=== PATIENT | male | born 1980 | race Two or more races ===

== ENCOUNTER 2025-09-19 16:20 | Inpatient (IN) | payer MEDICAID ==
[~2025-09-19] VITALS: Ht 180.3 cm; Wt 100.0 kg
--- NOTE | 2025-09-19 16:49 | ED.PDOC ---
HPI Comments HPI: This is a 45 year old male presenting to the ED with chief complaint of syncope. Patient reports that he experienced a syncopal episode last night and today along with experiencing associated symptoms of chest burning and lower extremity tingling/pain. Patient relays that he is currently on Prednisone for treatment of chronic back pain. Patient states that his pain all started last night. Patient denies any N/V, SOB, dizziness, headache, fever, or head injury. Patient denies any use of drugs or alcohol. Patient denies any head injury fall or trauma. Past Medical history: HTN, HLD, Chronic Tachycardia, DM, Chronic low back pain Past Surgical history: Spinal Fusion x3 Medications: Lantus, Metformin, Jardiance, Ozempic, Prednisone Social History: Denies smoking, ETOH, and drug use. Allergies: NKDA HPI: Poor Historian. REVIEW OF SYSTEMS: CONSTITUTIONAL: Denies acute: fever, diaphoresis, chills, HEAD: Denies acute: headache, photophobia Eyes: Denies acute: Double vision, vision loss, eye pain, eye discharge. EARS: Denies acute: tinnitus, hearing loss, ear discharge, ear pain, THROAT: Denies acute: sore throat, swelling, difficulty swallowing , pain with swallowing, change in voice. NECK: Denies acute: neck pain, neck swelling, stiff neck. HEART: Denies acute : chest pain, palpitations, LUNGS: Denies acute: SOB, wheezing, cough, hemoptysis ABDOMEN: Denies acute: abdominal pain, Nausea, Vomiting, diarrhea, melena , hematemesis, hematochezia SKIN: Denies acute: rash, redness, lesions, itchiness. EXTREMITIES: Denies acute: calf pain, numbness, tingling, weakness, denies pain in extremity. Denies acute: Low back pain. Neuro: Denies acute: focal neurological deficit, motor or sensory focal neurological deficit, tremors, seizure like activity, confusion, change in mental status, loss of bowel or bladder function, cauda equina like symptoms. : Denies acute: dysuria, hematuria, flank pain, increase in urinary frequency. PSYCH: Denies acute: hallucination, suicidal ideation, homicidal ideation. PHYSICAL EXAM: General: ----moderate---acute distress, awake and alert. Head: normocephalic, atraumatic. No raccoon's eyes, no escalante sign. Neck: supple, trachea is midline, no swelling. Throat: Normal phonation. Eyes:, no erythema, no purulent discharge, no proptosis, no icterus. Heart: regular tachy cardia, no significant murmur appreciated. Lungs: no apparent respiratory distress, Able to speak in full sentences. No wheezing, no rhonchi, no crackles. No stridors Clear to auscultation bilaterally. Abdomen: non tender to palpation, non distended, soft, no guarding, no rebound, + bowel sounds. Neuro: Awake, Alert, oriented to name, self, situation, follows commands GCS=15. Speech is normal. Skin: no petechia, no purpura, no cyanosis, non-pale, not jaundice. Lower extremities: --no - Pitting edema no deformity, no focal swelling, no calf TTP. Makes eye contact. moves all four extremities. Face: no apparent facial droop. ED COURSE: DISCLAIMER: This medical document was created using an electronic medical record system with voice recognition software and computerized dictation system. Although this document has been carefully reviewed, there might still be some phonetic and typographical errors. Occasional wrong-word or "sound-alike" substitutions may have occurred due to the inherent limitations of voice recognition software. These areas are purely typographical due to imperfections of the software programs and do not reflect any compromise in the patient's medical care. Please read the chart carefully and recognize, using context, where these substitutions have occurred. Chief Complaint: Chest Pain Time Seen by MD: 16:46 Reviewed Notes: Medications, Allergies Allergies: Coded Allergies: NO KNOWN ALLERGIES (Unverified , 09/19/25) Home Meds Active Scripts Doxycycline (Monohydrate) (Doxycycline) 100 Mg Tab, 100 MG PO BID for 5 Days, #10 TAB Prov:MATHEW VALDOVINOS RESIDENT 09/21/25 Amoxicillin & Pot Clavulanate (AUGMENTIN TABLET) 875 Mg Tb, 875 MG PO BID for 5 Days, #10 TAB Prov:MATHEW VALDOVINOS RESIDENT 09/21/25 Reported Medications Gabapentin (Gabapentin) 300 Mg Cap, 1 CAP PO BID, #90 CAP 5 Refills 09/20/25 Hydrocodone-Acetaminophen (Hydrocodone Bitartrate/AC 10-325 mg) 1 Tab Tab, 1 TAB PO TID, TAB 09/20/25 Semaglutide (Ozempic) 2 Mg/3 Ml Inj, 2 MG SC, INJ 09/20/25 Insulin Glargine (Lantus) 100 Unit/Ml Inj, 100 UNIT SC, INJ 09/20/25 Empagliflozin (Jardiance) 25 Mg Tab, 25 MG PO DAILY, TAB 09/20/25 Prednisone (Prednisone) 20 Mg Tab, 20 MG PO DAILY, MG 09/20/25 Cholecalciferol (VITAMIN D3) 2,000 Unit Tab, 1 TAB PO DAILY, #30 TAB 5 Refills 09/20/25 Calcium (Calcium) 500 Mg Tab, 500 MG PO, TAB 09/20/25 Leflunomide (Arava) 20 Mg Tab, 1 TAB PO DAILY, #30 TAB 09/20/25 Discontinued Reported Medications Metformin Hydrochloride (Metformin Hcl) 500 Mg Tab, 1 TAB PO BID, #60 TAB 3 Refills 09/20/25 Information Source: Patient Mode of Arrival: Ambulatory Was a procedure done? Was a procedure done?: No CP Differential Dx Differential Diagnosis: A-fib, A-Flutter, Angina, Anxiety / Panic Attack, Atrial Dysrhythmia, Digoxin Toxicity, Electrolyte Disorder, Heart Failure, Hyperthyroidism, Hyperventilation, Hypoxia, MAT, NE, PAC's, Pacemaker Malfunction, PSVT, Pulmonary Embolus, PVC's, Renal Failure, Sinus Tachycardia, Torsades De Pointes, Ventricular Dysrhythmia, V-Fib, V-Tach, WPW Differential Diagnosis: Other (Ddx include but not limitied to gastritis, musculoskeletal pain, radiculopathy, atypical chest pain, dissection, aneurysm, ACS, unstable angina, hiatal hernia, GERD, anxiety, costochondritis, PE, pneumothroax, neoplasm, cardiac ischemia, drug abuse, anemia.) X-Ray, Labs, Meds, VS Vital Signs Date Time Temp Pulse Resp B/P (MAP) Pulse Ox O2 Delivery O2 Flow Rate FiO2 09/19/25 19:31 109 09/19/25 19:30 123/88 09/19/25 18:57 129 24 94 Room Air 09/19/25 18:56 98.1 129 24 120/92 (101) 94 98.1 09/19/25 17:24 135 09/19/25 16:33 137 09/19/25 16:29 97.7 137 18 122/90 100 97.7 Lab Test 09/19/25 19:26 09/19/25 18:31 09/19/25 17:31 09/19/25 16:38 Range/Units Lactic Acid Level 2.9 *H 4.1 *H 0.4-2.0 mmol/L Magnesium Level 2.1 2.1 1.6-2.6 mg/dL Troponin I High Sensitivity 30 37 39 </=54 ng/L Urine Color Light-yellow Yellow Urine Clarity Clear Clear Urine pH 5.5 5.0-9.0 Urine Specific [place] 1.043 H 1.001-1.035 Urine Protein Negative Negative Urine Ketones Negative Negative Urine Blood Negative Negative /uL Urine Nitrite Negative Negative Urine Bilirubin Negative Negative Urine Urobilinogen Normal Negative mg/dL Urine Leukocyte Esterase Negative Negative /uL Urine RBC <1 0 - 3 /hpf Urine Microscopic WBC 1 0-3 /HPF Urine Squamous Epithelial Cells Few <5 /hpf Urine Bacteria None seen None Seen /hpf Urine Glucose 4+ H Normal mg/dL Urine Opiates Screen Neg NEGATIVE Urine Fentanyl Screen Neg NEGATIVE Urine Barbiturates Screen Neg NEGATIVE Urine Phencyclidine Screen Neg NEGATIVE Urine Amphetamines Screen Neg NEGATIVE Urine Benzodiazepines Screen Neg NEGATIVE Urine Cocaine Screen Neg NEGATIVE Urine Cannabinoids Screen Neg NEGATIVE White Blood Count 11.7 H 4.4-10.8 10^3/uL Red Blood Count 6.15 H 4.5-5.90 10^6/uL Hemoglobin 17.5 13.5-17.5 g/dL Hematocrit 52.0 41.0-53.0 % Mean Corpuscular Volume 84.5 80.0-100.0 fL Mean Corpuscular Hemoglobin 28.5 28.0-32.0 pg Mean Corpuscular Hemoglobin Concent 33.7 32.0-36.0 g/dL Red Cell Distribution Width 17.0 H 11.8-14.3 % Platelet Count 290 140-450 10^3/uL Mean Platelet Volume 7.3 6.9-10.8 fL Neutrophils (%) (Auto) 75.6 37.0-80.0 % Lymphocytes (%) (Auto) 15.9 10.0-50.0 % Monocytes (%) (Auto) 6.7 0.0-12.0 % Eosinophils (%) (Auto) 1.5 0.0-7.0 % Basophils (%) (Auto) 0.3 0.0-2.0 % Neutrophils # (Auto) 8.9 H 1.6-8.6 10 ^3/uL Lymphocytes # (Auto) 1.9 0.4-5.4 10 ^3/uL Monocytes # (Auto) 0.8 0-1.3 10 ^3/uL Eosinophils # (Auto) 0.2 0-0.8 10 ^3/uL Basophils # (Auto) 0 0-0.2 10 ^3/uL Nucleated Red Blood Cells 0.1 % Sodium Level 141 136-145 mmol/L Potassium Level 4.0 3.5-5.1 mmol/L Chloride Level 105 98-107 mmol/L Carbon Dioxide Level 20 20-31 mmol/L Anion Gap 16 H 5-15 Blood Urea Nitrogen 9 9-23 mg/dL Creatinine 0.91 0.700-1.30 mg/dL Glomerular Filtration Rate Calc 105 >90 mL/min BUN/Creatinine Ratio 9.9 L 10.0-20.0 Serum Glucose 243 H 74-106 mg/dL Calcium Level 9.8 8.7-10.4 mg/dL Total Bilirubin 0.5 0.2-1.0 mg/dL Aspartate Amino Transferase (AST) 25 13-40 U/L Alanine Aminotransferase (ALT) 51 H 7-40 U/L Alkaline Phosphatase 82 46-116 U/L B-Type Natriuretic Peptide 8.67 0-100 pg/mL Total Protein 7.4 5.7-8.2 g/dL Albumin 4.6 3.2-4.8 g/dL Thyroid Stimulating Hormone (TSH) 0.64 0.55-4.78 uIU/mL Microbiology Date/Time Source Procedure Growth Status 09/19/25 17:35 Blood Blood Culture - Final NO GROWTH AFTER 5 DAYS OF INCUBATION. Complete 09/19/25 17:31 Blood Blood Culture - Final NO GROWTH AFTER 5 DAYS OF INCUBATION. Complete [facility] [id number] [facility] [address] Ph: [phone] DIAGNOSTIC IMAGING Diagnostic Imaging Report : [id number] Signed PATIENT: JUAN JOSE PARMAR ACCT: [id number] UNIT: [id number] : 1980 LOC: ER ROOM / BED: / AGE / SEX: 45 / M ADM STATUS: REG ER SERVICE 163 ORDERING PHYSICIAN: ORQUIDEA RINCON PROCEDURE(s): CXR2 - CHEST TWO VIEWS ROUTINE REASON: CP ORDER NUMBER(s): [id number], ACCESSION NUMBER(s): [id number] XY CHEST TWO VIEWS ROUTINE CLINICAL HISTORY: CP COMPARISON: None TECHNIQUE: Frontal and lateral view of the chest was obtained FINDINGS: Lines and Tubes: None Lungs: Nodular appearance noted over the right 8th rib. This may represent a 4 2 [place] confluence of bony densities. There are no prior studies for comparison. Pleura: No effusion. No pneumothorax. Cardiomediastinal contours: Unremarkable Bones: No acute osseous abnormality. IMPRESSION: 1. No acute cardiopulmonary disease. 2. Nodular density over the right 8th rib if of clinical concern recommend CT of the chest for further evaluation. ATED BY: SIDDHARTH SHORE Jr., DO DICTATED DATE/TIME: 09/19/251719 SIGNED BY: SIDDHARTH SHORE Jr., SIGNED DATE/TIME: 09/19/251719 CC: Time of 1ST Reevaluation: 17:46 Reevaluation 1ST: Unchanged Patient Education/Counseling: Diagnosis, Treatment Family Education/Counseling: No Family Present Comments MDM: patient presented with the above HPI.-cardiac----workup was initiated. patient was found with the above mentioned diagnosis. the following medications were ordered: please refer to order lists of meds and tests obtained by myself Dr. Marsh. Patient ED course and VS have been stabilized. Patient has been reassessed in the ED and remained in a stable condition. Pertinent incidental findings were discussed with the patient and/or family. Patient/family voices understanding and is agreeable with plan. Patient has been observed in the ED adequate length of time to insure improvement/stability. Escalation of care considered: Consideration of escalation to observation or admission Patient was ADMITTED to the medicine team for further evaluation and treatment of their presentation. All the reports of any imaging studies that were ordered by myself were reviewed by myself. Departure 1 Departure Time of Disposition: 17:58 Impression: Primary Impression: Syncope Additional Impression: Tachycardia Disposition: ADMITTED INPATIENT Admit to: Tele Condition: Guarded e-Prescriptions Doxycycline (Monohydrate) (Doxycycline) 100 Mg Tab 100 MG PO BID for 5 Days, #10 TAB Prov: BONIFACIOMATHEW RESIDENT 09/21/25 Amoxicillin & Pot Clavulanate (AUGMENTIN TABLET) 875 Mg Tb 875 MG PO BID for 5 Days, #10 TAB Prov: MATHEW VALDOVINOS RESIDENT 09/21/25 Discharged With: Self Critical Care Note Critical Care Time?: No Heart Score Heart Score: Heart Score Response (Comments) Value History Highly Suspicious 2 EKG Repolarization Disturb 1 Age 45-64 1 Risk Factors 1 or 2 risk factors 1 Troponin Normal limit 0 Total 5 I personally scribed for BISI MARSH DO ([email or web address]) on 09/19/25 at 16:49. Electronically submitted by Montrell Ca ([email or web address]). BISI MARSH DO Sep 19, 2025 16:49
[2025-09-19 16:53] LABS: Hemoglobin 17.5 g/dL (13.5-17.5); Nucleated Red Blood Cells % 0.1 %
[2025-09-19 16:55] LABS: Hematocrit 52.0 % (41.0-53.0); Mean Corpuscular Hemoglobin 28.5 pg (28.0-32.0); Mean Corpuscular Volume 84.5 fL (80.0-100.0)
[2025-09-19 17:11] LABS: Albumin 4.6 g/dL (3.2-4.8); Alkaline Phosphatase 82 U/L (46-116); Anion Gap 16 (5-15); BUN/Creatinine Ratio 9.9 (10.0-20.0); Blood Urea Nitrogen 9 mg/dL (9-23); Calcium 9.8 mg/dL (8.7-10.4); Carbon Dioxide 20 mmol/L (20-31); Chloride 105 mmol/L (98-107); Magnesium 2.1 mg/dL (1.6-2.6); Potassium 4.0 mmol/L (3.5-5.1); Sodium 141 mmol/L (136-145); Total Protein 7.4 g/dL (5.7-8.2)
[2025-09-19 17:12] LABS: Alanine Aminotransferase 51 U/L (7-40); Bilirubin, Total 0.5 mg/dL (0.2-1.0); Glucose 243 mg/dL (74-106)
[2025-09-19 17:14] LABS: Lactic Acid w/Reflex 4.1 mmol/L (0.4-2.0)
--- NOTE | 2025-09-19 17:22 | DVH ---
XY CHEST TWO VIEWS ROUTINE CLINICAL HISTORY: CP COMPARISON: None TECHNIQUE: Frontal and lateral view of the chest was obtained FINDINGS: Lines and Tubes: None Lungs: Nodular appearance noted over the right 8th rib. This may represent a 4 2 [place] confluence of bony densities. There are no prior studies for comparison. Pleura: No effusion. No pneumothorax. Cardiomediastinal contours: Unremarkable Bones: No acute osseous abnormality. IMPRESSION: 1. No acute cardiopulmonary disease. 2. Nodular density over the right 8th rib if of clinical concern recommend CT of the chest for further evaluation.
[2025-09-19] MEDS: SODIUM CHLORIDE 0.9% 1,000 ML IV ONE ×3 (17:56→21:15)
[2025-09-19 18:48] LABS: Urine Protein, UAD Negative (Negative)
[2025-09-19 18:57] LABS: Amphetamine Screen, Urine Neg (NEGATIVE); Barbiturate Scree,Urine Neg (NEGATIVE); Benzodiazephine Screen, Urine Neg (NEGATIVE); Cannabinoid Screen, Urine Neg (NEGATIVE); Cocaine Screen, Urine Neg (NEGATIVE); Opiate Scree,Urine Neg (NEGATIVE); Phencyclidine Screen, Urine Neg (NEGATIVE)
[2025-09-19] MEDS: HYDROcodone-ACET 5/325MG TAB PO ONE (19:30)
[2025-09-19] MEDS: NITROGLYCERIN 0.4 MG SL TAB SL ONE (19:30)
[2025-09-19] MEDS ORDERED: ACETAMINOPHEN 325 MG TAB PO PRN (21:15)
[2025-09-19] MEDS: IPRATROPIUM BROM 0.5 MG/2.5ML INH SOL NEB ONE (21:15)
[2025-09-19] MEDS ORDERED: DEXTROSE (50%) 50ML SYRG IV PRN (21:15)
[2025-09-19] MEDS ORDERED: ONDANSETRON HCL 4 MG/2 ML VIAL IV PRN (21:15)
[2025-09-19] MEDS: ENOXAPARIN SOD 40 MG/0.4 ML SYRINGE SC SCH (21:15)
[2025-09-19] MEDS: ALBUTEROL SULF 2.5 MG/0.5ML(0.5%) NEB SOLN NEB ONE (21:15)
[2025-09-19] MEDS: HYDROmorphone HCL 2 MG/ML VL/or syr IV ONE (21:15)
[2025-09-19] MEDS: INSULIN LANTUS (GLARGINE) 1 /0.01ml (100units/ml) SC SCH (22:00)
--- NOTE | 2025-09-19 22:06 | DVH ---
CLINICAL HISTORY: syncope TECHNIQUE: Helical scanning was performed of the head from the skull base to the vertex. Multiplanar reconstructions were performed. This exam was performed according to our departmental dose optimization program. Up-to-date CT equipment and radiation dose reduction techniques are utilized as appropriate. CTDI 58 DLP 1143 COMPARISON: None FINDINGS: There is no evidence for acute intracranial hemorrhage, acute ischemic changes, mass, mass effect, or extra-axial fluid collection. There is no hydrocephalus or midline shift. There is no effacement of the cerebral sulci and basal subarachnoid cisterns. The chen-white matter differentiation is well maintained. The imaged paranasal sinuses demonstrate moderate right maxillary sinus mucosal thickening with secretions. IMPRESSION: No acute intracranial abnormality seen. Moderate right maxillary sinus mucosal thickening with secretions.
[2025-09-19] MEDS: ALBUTEROL SULF 2.5 MG/0.5ML(0.5%) NEB SOLN ONE (22:08)
[2025-09-19] MEDS: IPRATROPIUM BROM 0.5 MG/2.5ML INH SOL ONE (22:08)
--- NOTE | 2025-09-19 22:23 | DVH ---
ULTRASOUND CAROTID DUPLEX BILATERAL REASON FOR EXAM: syncope COMPARISON: None TECHNIQUE: Using real-time freeze-frame technique with a high-frequency small parts transducer, multiple longitudinal and transverse sections were obtained. Simultaneous color flow Doppler imaging was performed. FINDINGS: No significant atherosclerotic plaque is identified. Waveforms are normal. Flow is laminar throughout. Peak systolic velocities as well as ICA/CCA ratios are normal. Flow through the vertebral and external carotid arteries is antegrade bilaterally. PEAK SYSTOLIC VELOCITIES (cm/sec): RIGHT: CCA 76 Proximal ICA 59 Mid ICA 32 Distal ICA 62 ECA 54 ICA/CCA ratio 0.8 LEFT: CCA 66 Proximal ICA 40 Mid ICA 67 Distal ICA 72 ECA 78 ICA/CCA ratio 1.1 IMPRESSION: No significant stenosis. Any narrowing is less than 50%. Measurement of carotid stenosis is based on velocity parameters that correlate the residual internal carotid diameter with that of the more distal vessel in accordance with the [place] Symptomatic Carotid Endarterectomy Trial (NASCET).
[2025-09-19] MEDS: predniSONE 20 MG TAB PO ONE (22:31)
[2025-09-19 23:00] VITALS: BP 123/88; PULSE 100; RESP 18; TEMP 98.1; O2SAT 95
--- NOTE | 2025-09-19 23:55 | DVHHPRES ---
History of Present Illness Resident Creating Document: JUAN CAST RESIDENT History of Present Illness 45-year-old male with a past medical history of chronic tachycardia, type 2 diabetes mellitus (On insulin), lower back pain and rheumatoid arthritis( taking daily prednisolone) with surgical history of spinal fusion x2- one l aminectomy, has come in with the chief complaints of shortness of breath and cough for 2 weeks, 2-3 syncopal episodes and increased lower back pain which radiates to his legs. Patient reports that he has been coughing for the past 2 weeks, producing dark yellow phlegm, which has now become white, associated with increased shortness of breath, rendering him unable to travel from his bed to his bathroom. He also reports that he has had 2-3 episodes of syncope after returning from the bathroom to bed on lying down, describes it as a 'sudden flushing' of his whole body, making him sweaty and he blacks out for 5-10 seconds ( reports he missed out on the conversation twice due to this). Patient also reports of chronic back pain which has been worsening since last night, throbbing, 7/10, radiating down to b/l legs more than usual, and associated with a sharp pain in his chest which lasted several minutes. Patient denies any recent sick contacts, palpitations, chest tightness, On admission, patient's heart rate was 137, respiratory rate 24, WBC count 11.7, lactic acid 4.1, blood glucose 243. UA and UDS are negative. We are admitting the patient for further workup and management PMH: As stated above PSH: As stated above Family history: Reviewed, noncontributory to the management of this case Social history: Patient smokes E cigarettes for the past 5 years, used to smoke 1 pack of cigarettes per day for 27 years, denies any alcohol or drug abuse PCP: Dr. Lazaro Code status: Full code Review of Systems Constitutional: No: Fever, Chills, Sweats, Weakness, Malaise, Other Eyes: No: Pain, Vision change, Conjunctivae inflammation, Eyelid inflammation, Other, Redness ENT: No: Ear pain, Ear discharge, Nose pain, Nose discharge, Nose congestion, Mouth pain, Mouth swelling, Throat pain, Throat swelling, Other Respiratory: Cough, Shortness of breath, Sputum; No: Dry, SOB with excertion, Wheezing, Hemoptysis, Pleuritic Pain, Wheezing, Other Cardiovascular: Other (Syncope); No: Chest Pain, Palpitations, Orthopnea, Paroxysmal Noc. Dyspnea, Edema, Lt Headedness Gastrointestinal: No: Nausea, Vomiting, Abdominal Pain, Diarrhea, Constipation, Melena, Hematochezia, Other Genitourinary: No Dysuria, No Frequency, No Incontinence, No Hematuria, No Retention, No Other Musculoskeletal: back pain; No: other, neck pain, shoulder pain, arm pain, hand pain, leg pain, foot pain Skin: No: Rash, Lesions, Jaundice, Bruising, Other Neurological: No: Weakness, Numbness, Incoordination, Change in speech, Confusion, Seizures, Other Allergies: Coded Allergies: NO KNOWN ALLERGIES (Unverified , 09/19/25) Medications Current Medications Medications Dose Ordered Sig/Jr Route Start Time Stop Time Status Last Admin Dose Admin Acetaminophen/ Hydrocodone Bitart 1 tab Q4HP PRN PO 09/19/25 21:15 Ondansetron HCl 4 mg Q4HP PRN IV 09/19/25 21:15 Acetaminophen 650 mg Q6HP PRN PO 09/19/25 21:15 Enoxaparin Sodium 40 mg DAILY SC 09/19/25 21:15 09/19/25 21:15 40 MG Insulin Glargine 20 units HS SC 09/19/25 22:00 09/19/25 22:00 20 UNITS Prednisone 40 mg DAILY PO 09/20/25 10:00 Albuterol 2.5 mg Q6HPRN PRN NEB 09/20/25 08:00 Ipratropium [place] 0.5 mg Q6HR NEB 09/20/25 08:00 Hydromorphone HCl 0.25 mg Q3HPRN PRN IV 09/19/25 21:15 Ceftriaxone Sodium 50 ml @ 100 mls/hr Q24H IV 09/20/25 21:00 Diagnostic Test (Pha) 1 strip Q6HR 09/20/25 00:00 Insulin Human Regular Q6HR SC 09/20/25 00:00 Dextrose 50 ml UD PRN IV 09/19/25 21:15 Exam Vital Signs Vital Signs Date Time Temp Pulse Resp B/P (MAP) Pulse Ox O2 Delivery O2 Flow Rate FiO2 09/19/25 23:00 98.1 100 18 123/88 95 0.0 98.1 11/12/25 22:09 Room Air* 21 Exam Pt is lying on bed General Appearance: Alert, Oriented X3, Cooperative, in acute distress, flushed face HEENT: Atraumatic, Mucous membranes moist/pink, presence of red macular rash on the chest area (chronic, told by PCP it was due to RA) Respiratory: Clear to auscultation, Normal air movement, No added sounds Cardiovascular: Regular rate, Normal S1, Normal S2, No murmurs Abdominal: Active bowel sounds, Soft, no distention, no tenderness Extremities: No edema, Normal pulses, No tenderness/swelling Skin: No Significant rash, except past surgical scars Neuro: Normal speech, sensorimotor deficits none Psych/Mental Status: Mental status NL, Mood NL Labs/Xrays Labs Test 09/19/25 22:24 09/19/25 22:07 09/19/25 19:26 09/19/25 18:31 Range/Units POC Glucose 180 H 70-106 mg/dl D-Dimer, Quantitative 0.57 H 0.0-0.49 mg/L FEU Lactic Acid Level 2.9 *H 0.4-2.0 mmol/L Magnesium Level 2.1 1.6-2.6 mg/dL Troponin I High Sensitivity 30 </=54 ng/L Urine Color Light-yellow Yellow Urine Clarity Clear Clear Urine pH 5.5 5.0-9.0 Urine Specific [place] 1.043 H 1.001-1.035 Urine Protein Negative Negative Urine Ketones Negative Negative Urine Blood Negative Negative /uL Urine Nitrite Negative Negative Urine Bilirubin Negative Negative Urine Urobilinogen Normal Negative mg/dL Urine Leukocyte Esterase Negative Negative /uL Urine RBC <1 0 - 3 /hpf Urine Microscopic WBC 1 0-3 /HPF Urine Squamous Epithelial Cells Few <5 /hpf Urine Bacteria None seen None Seen /hpf Urine Glucose 4+ H Normal mg/dL Urine Opiates Screen Neg NEGATIVE Urine Fentanyl Screen Neg NEGATIVE Urine Barbiturates Screen Neg NEGATIVE Urine Phencyclidine Screen Neg NEGATIVE Urine Amphetamines Screen Neg NEGATIVE Urine Benzodiazepines Screen Neg NEGATIVE Urine Cocaine Screen Neg NEGATIVE Urine Cannabinoids Screen Neg NEGATIVE Test 09/19/25 16:38 Range/Units White Blood Count 11.7 H 4.4-10.8 10^3/uL Red Blood Count 6.15 H 4.5-5.90 10^6/uL Hemoglobin 17.5 13.5-17.5 g/dL Hematocrit 52.0 41.0-53.0 % Mean Corpuscular Volume 84.5 80.0-100.0 fL Mean Corpuscular Hemoglobin 28.5 28.0-32.0 pg Mean Corpuscular Hemoglobin Concent 33.7 32.0-36.0 g/dL Red Cell Distribution Width 17.0 H 11.8-14.3 % Platelet Count 290 140-450 10^3/uL Mean Platelet Volume 7.3 6.9-10.8 fL Neutrophils (%) (Auto) 75.6 37.0-80.0 % Lymphocytes (%) (Auto) 15.9 10.0-50.0 % Monocytes (%) (Auto) 6.7 0.0-12.0 % Eosinophils (%) (Auto) 1.5 0.0-7.0 % Basophils (%) (Auto) 0.3 0.0-2.0 % Neutrophils # (Auto) 8.9 H 1.6-8.6 10 ^3/uL Lymphocytes # (Auto) 1.9 0.4-5.4 10 ^3/uL Monocytes # (Auto) 0.8 0-1.3 10 ^3/uL Eosinophils # (Auto) 0.2 0-0.8 10 ^3/uL Basophils # (Auto) 0 0-0.2 10 ^3/uL Nucleated Red Blood Cells 0.1 % Sodium Level 141 136-145 mmol/L Potassium Level 4.0 3.5-5.1 mmol/L Chloride Level 105 98-107 mmol/L Carbon Dioxide Level 20 20-31 mmol/L Anion Gap 16 H 5-15 Blood Urea Nitrogen 9 9-23 mg/dL Creatinine 0.91 0.700-1.30 mg/dL Glomerular Filtration Rate Calc 105 >90 mL/min BUN/Creatinine Ratio 9.9 L 10.0-20.0 Serum Glucose 243 H 74-106 mg/dL Calcium Level 9.8 8.7-10.4 mg/dL Total Bilirubin 0.5 0.2-1.0 mg/dL Aspartate Amino Transferase (AST) 25 13-40 U/L Alanine Aminotransferase (ALT) 51 H 7-40 U/L Alkaline Phosphatase 82 46-116 U/L B-Type Natriuretic Peptide 8.67 0-100 pg/mL Total Protein 7.4 5.7-8.2 g/dL Albumin 4.6 3.2-4.8 g/dL Thyroid Stimulating Hormone (TSH) 0.64 0.55-4.78 uIU/mL SEPSIS Sepsis Screen Date sepsis recognized/suspect: Sep 19, 2025 Time Sepsis recognized/suspect: 1629 Recent Procedure: No On Antibiotic Therapy: No Respiratory Rate >20: No Heart Rate >90: No Temp<36 C (96.8 F) or >38.3 C: No SBP <90 or MAP <65 mmHG: No New Acute Mental Status Change: No Is the patient on CPAP, BIPAP,: No Physician Orders Chest Two Views Routine (09/19/25 16:36) Electrocardigram (09/19/25 16:36) Electrocardigram (09/19/25 17:36) Electrocardigram (09/19/25 19:36) Senior Search Marketing Analyst (09/19/25 ) Blood Culture (09/19/25 16:45) Admit (09/19/25 21:02) Code Status (09/19/25 21:02) Hydrocodone-Acet 5/325mg Tab ([place] 5/32 (09/19/25 21:15) Ondansetron Hcl (Zofran) (09/19/25 21:15) Complete Blood Count (09/20/25 04:00) Comprehensive Metabolic Panel (09/20/25 04:00) Cardiac Diet-2gna,Lofat,Lochol (09/20/25 Breakfast) Condition: Unstable (09/19/25 21:02) Acetaminophen Tablet (Tylenol Tablet) (09/19/25 21:15) Enoxaparin Sodium (Lovenox) (09/19/25 21:15) Insulin Lantus (Glargine) (Lantus) (09/19/25 22:00) Echo 2d Mode Cardiac Dop (09/19/25 21:02) Carotid Duplx W Color Dop (09/19/25 21:02) Lactic Acid W/ Reflex Order (09/20/25 01:00) Prednisone Tablet (09/20/25 10:00) Albuterol Medneb (Ventolin Medneb) (09/20/25 08:00) Ipratropium Medneb (Atrovent Medneb) (09/20/25 08:00) Respiratory Culture W/ Gs (09/19/25 21:02) Hydromorphone Injection (Dilaudid Inject (09/19/25 21:15) Mrsa Screen (09/19/25 21:02) Ceftriaxone 1gm/50ml (Rocephin) (09/20/25 21:00) Head Without Contrast (09/19/25 21:02) Covid19 Antigen (09/19/25 ) Rapid Influenza A&B (09/19/25 21:02) Glucose Blood (Accu-Chek Comfort Curve T (09/20/25 00:00) Insulin R (Human) (Insulin R) (09/20/25 00:00) Dextrose 50% Syringe (09/19/25 21:15) Vital Signs Date Time Temp Pulse Resp B/P (MAP) Pulse Ox O2 Delivery O2 Flow Rate FiO2 09/19/25 23:00 98.1 100 18 123/88 95 0.0 98.1 09/19/25 22:46 100 18 123/88 (100) 95 09/19/25 22:09 16 95 Room Air* 0 21 09/19/25 21:15 74 18 128/74 09/19/25 19:31 109 09/19/25 19:30 123/88 09/19/25 18:57 129 24 94 Room Air 09/19/25 18:56 98.1 129 24 120/92 (101) 94 98.1 09/19/25 17:24 135 09/19/25 16:33 137 09/19/25 16:29 97.7 137 18 122/90 100 97.7 Laboratory Tests Test 09/19/25 16:38 09/19/25 19:26 Lactic Acid Level 4.1 mmol/L (0.4-2.0) *H 2.9 mmol/L (0.4-2.0) *H White Blood Count 11.7 10^3/uL (4.4-10.8) H Medications Medications Dose Ordered Sig/Jr Route Start Time Stop Time Status Last Admin Dose Admin Acetaminophen/ Hydrocodone Bitart 1 tab ONCE ONCE PO 09/19/25 19:30 09/19/25 20:03 DC 09/19/25 19:30 1 TAB Albuterol 2.5 mg STK-MED ONCE .ROUTE 09/19/25 21:43 09/19/25 21:43 DC 09/19/25 22:08 2.5 MG Ceftriaxone Sodium 50 ml @ 100 mls/hr ONCE ONCE IV 09/19/25 19:30 09/19/25 20:03 DC 09/19/25 19:30 100 MLS/HR Enoxaparin Sodium 40 mg DAILY SC 09/19/25 21:15 09/19/25 21:15 40 MG Hydromorphone HCl 0.25 mg ONCE ONCE IV 09/19/25 21:15 09/19/25 22:13 DC 09/19/25 21:15 0.25 MG Insulin Glargine 20 units HS SC 09/19/25 22:00 09/19/25 22:00 20 UNITS Ipratropium [place] 0.5 mg STK-MED ONCE .ROUTE 09/19/25 21:43 09/19/25 21:43 DC 09/19/25 22:08 0.5 MG Prednisone 40 mg ONCE ONCE PO 09/19/25 21:15 09/19/25 22:13 DC 09/19/25 22:31 40 MG Sodium Chloride 1,000 ml @ 1,000 mls/hr Q1H ONCE IV 09/19/25 16:45 09/19/25 17:44 DC 09/19/25 17:56 1,000 MLS/HR Sodium Chloride 1,000 ml @ 1,000 mls/hr Q1H ONCE IV 09/19/25 17:30 09/19/25 18:29 DC 09/19/25 17:56 1,000 MLS/HR Sodium Chloride 1,000 ml @ 1,000 mls/hr Q1H ONCE IV 09/19/25 21:15 09/19/25 22:14 DC 09/19/25 21:15 1,000 MLS/HR Assessment/Plan Assessment/Plan #Sepsis due to possible Gram-positive, Gram-negative pneumonia #Lactic acidosis -lactic acid 4.1> 2.9>1.7 -blood culture -Respiratory culture -IV Rocephin 1 g daily -COVID, flu- neg -D-dimer 0.57 -Doppler of bilateral extremities: No DVT is seen. No other abnormalities identified -chest x-ray shows nodular density of the 8th rib -Med nebulization albuterol 2.5 mg q.6 PRN -Med nebulization ipratropium bromide q.6 PRN -MRSA neg -IV NS 0.9% #Syncope -troponins -39, 37, 30 -UA normal -UDS negative -BNP 8.67 -Echo -TSH 0.64 -Carotid Doppler: No significant stenosis. Any narrowing is less than 50% -Magnesium 2.1 -IV ondansetron for Gram q.4 PRN -Ct head shows: no acute intracranial abnormality seen; Moderate right maxillary sinus mucosal thickening with secretions -levabuterol med neb once #Uncontrolled diabetes mellitus type 2 -A1c 8.2 -serum glucose 243 -insulin Lantus 20 units daily HS -Moderate sliding scale insulin #Chronic lower back pain -Pain control with: -acetaminophen 650 mg p.o. q.6 PRN for mild pain -[place] 5/325 mg q.4 PRN for moderate pain and -Dilaudid 0.25 mg IV once and 0.25 mg q.4 PRN for severe pain #Rheumatoid arthritis -Continue home medication prednisolone 40 mg daily #Obesity, BMI 30.7kg/m2 - patient was counseled regarding need of exercise, weight loss, dietary modification and healthy lifestyle for the 8 minutes DVT prophylaxis: Lovenox 40 mg SC daily GI prophylaxis: Diet: cardiac and diabetic Goals of care discussed with the patient for more than 27 minutes: Full code status Case discussed with Dr. Lazaro, patient and nurse. Plan discussed with: Patient My Orders Orders - JUAN CAST RESIDENT Procedure Category Date Status Time Admit ADMIT 09/19/25 Transmitted 21:02 Code Status CODE 09/19/25 Transmitted 21:02 Hydrocodone-Acet PHA 09/19/25 In Process 5/325mg Tab ([place] 21:15 Ondansetron Hcl PHA 09/19/25 In Process (Zofran) 21:15 Complete Blood Count LAB 09/20/25 Verified 04:00 Comprehensive LAB 09/20/25 Verified Metabolic Panel 04:00 Cardiac DIET 09/20/25 Transmitted Diet-2gna,Lofat,Lochol Breakfast Condition: Unstable GEOVANI 09/19/25 In Process 21:02 Acetaminophen Tablet PHA 09/19/25 In Process (Tylenol Tablet) 21:15 Enoxaparin Sodium PHA 09/19/25 In Process (Lovenox) 21:15 Insulin Lantus PHA 09/19/25 In Process (Glargine) (Lantus) 22:00 Echo 2d Mode Cardiac US 09/19/25 Logged DOP 21:02 Carotid Duplx W Color US 09/19/25 Resulted DOP 21:02 Lactic Acid W/ Reflex LAB 09/20/25 Verified Order 01:00 Prednisone Tablet PHA 09/20/25 In Process 10:00 Albuterol Medneb PHA 09/20/25 In Process (Ventolin Medneb) 08:00 Ipratropium Medneb PHA 09/20/25 In Process (Atrovent Medneb) 08:00 Respiratory Culture LENIN 09/19/25 Logged W/ Gs 21:02 Hydromorphone PHA 09/19/25 In Process Injection (Dilaudid 21:15 Mrsa Screen LENIN 09/19/25 Logged 21:02 Ceftriaxone 1gm/50ml PHA 09/20/25 In Process (Rocephin) 21:[address] 09/19/25 Resulted 21:02 Covid19 Antigen LAB 09/19/25 Logged Rapid Influenza A&B LAB 09/19/25 Logged 21:02 Glucose Blood PHA 09/20/25 In Process (Accu-Chek Comfort 00:00 Insulin R (Human) PHA 09/20/25 In Process (Insulin R) 00:00 Dextrose 50% Syringe PHA 09/19/25 In Process 21:15 Date of Service: Sep 20, 2025 Billing Provider: ARYAN LAZARO MD Common Visit Codes: [id number] INP/OBS CARE (HIGH) Secondary Visit Codes: [id number] CARE PLAN 30 MINUTES JUAN CAST RESIDENT Sep 19, 2025 23:55
[2025-09-20] VITALS (9 sets, daily range): BP systolic 109–138; BP diastolic 71–88; PULSE 96–108; RESP 18–20; TEMP 97.7–98.4; O2SAT 95–99
[2025-09-20] MEDS: InsuLIN REG 1unit/0.01ml Soln (100units/ml) SC SCH
[2025-09-20] MEDS: ACCU-CHEK COMFORT CURVE STRIP VI SCH
[2025-09-20] MEDS: HYDROcodone-ACET 5/325MG TAB PO PRN (00:53)
--- NOTE | 2025-09-20 02:29 | DVH ---
MEDICAL RECORDS NUMBER: [id number] PROCEDURE: Bilateral lower extremity venous duplex Date: 09/20/2025 12:15 AM HISTORY: High D-dimer COMPARISON: None TECHNIQUE: Real-time ultrasound scan of the examination listed above with color Doppler flow, spectral waveform analysis and compression. FINDINGS: Multiple grayscale and Doppler images of the bilateral lower extremities demonstrate normal phasic flow, augmentation and compression. IMPRESSION: 1. No DVT is seen. No other abnormalities identified.
[2025-09-20] MEDS: HYDROmorphone HCL 2 MG/ML VL/or syr IV PRN (03:00)
[2025-09-20] MEDS ORDERED: METF-370 PO (04:22)
[2025-09-20] MEDS ORDERED: PRED20TA2 PO (04:22)
[2025-09-20] MEDS ORDERED: INSLANTI SC (04:22)
[2025-09-20] MEDS ORDERED: CALC-312 PO (04:22)
[2025-09-20] MEDS ORDERED: LEFL20TA PO (04:22)
[2025-09-20] MEDS ORDERED: EMPA1TAB3 PO (04:22)
[2025-09-20] MEDS ORDERED: CHOL20007 PO (04:22)
[2025-09-20] MEDS ORDERED: HYDR-4798 PO (04:23)
[2025-09-20] MEDS ORDERED: GABA-1250 PO (04:23)
[2025-09-20] MEDS ORDERED: SEMA2INJ3 SC (04:23)
[2025-09-20 04:27] LABS: Hematocrit 46.6 % (41.0-53.0); Hemoglobin 15.5 g/dL (13.5-17.5); Mean Corpuscular Hemoglobin 28.0 pg (28.0-32.0); Mean Corpuscular Volume 84.0 fL (80.0-100.0); Nucleated Red Blood Cells % 0.1 %
[2025-09-20] MEDS ORDERED: LEVALBUTEROL HCL 1.25 MG/3 ML NEB NEB PRN (04:45)
[2025-09-20 04:48] LABS: Alkaline Phosphatase 73 U/L (46-116); Anion Gap 13 (5-15); BUN/Creatinine Ratio 14.9 (10.0-20.0); Blood Urea Nitrogen 10 mg/dL (9-23); Carbon Dioxide 23 mmol/L (20-31); Chloride 105 mmol/L (98-107); Potassium 4.3 mmol/L (3.5-5.1); Sodium 141 mmol/L (136-145); Total Protein 6.6 g/dL (5.7-8.2)
[2025-09-20 04:49] LABS: Albumin 4.1 g/dL (3.2-4.8); Bilirubin, Total 0.7 mg/dL (0.2-1.0)
[2025-09-20 04:51] LABS: Alanine Aminotransferase 44 U/L (7-40); Calcium 8.7 mg/dL (8.7-10.4); Glucose 244 mg/dL (74-106)
[2025-09-20 04:54] LABS: COVID19 ANTIGEN SOFIA FIA NEGATIVE (NEGATIVE)
[2025-09-20] MEDS: IPRATROPIUM BROM 0.5 MG/2.5ML INH SOL NEB SCH (06:13)
--- NOTE | 2025-09-20 07:12 | ECG ---
[facility] Test Date: 2025-09-19 Test Time: 19:31:57 Pat Name: BENNY SHORT Department: ED Room: 0296T Gender: M Vascular Specialists: raudel : 1980 Requested By: ORQUIDEA FORD* Order Number: [id number] Reading MD: Rene Daly Measurements Intervals [place] Rate: 109 P: 30 OH: 128 QRS: -47 QRSD: 88 T: 61 QT: 340 QTc: 458 Interpretive Statements Sinus tachycardia Biatrial enlargement Left anterior fascicular block Probable left ventricular hypertrophy Anterior Q waves, possibly due to LVH Electronically Signed On 09-21-2025 15:44:58 PST by Rene Daly Please click the below link to view image of tracing.
[2025-09-20] MEDS: SODIUM CHLORIDE 0.9% 1,000 ML IV SCH (07:59)
[2025-09-20] MEDS ORDERED: ALBUTEROL SULF 2.5 MG/0.5ML(0.5%) NEB SOLN NEB PRN (08:00)
[2025-09-20] MEDS ORDERED: IPRATROPIUM BROM 0.5 MG/2.5ML INH SOL NEB PRN (08:00)
[2025-09-20] MEDS: predniSONE 20 MG TAB PO SCH (09:37)
--- NOTE | 2025-09-20 11:19 | DVH ---
Procedure: CT CHEST WITHOUT CONTRAST Reason for study/Clinical History: nodule 8th rib area Comparison Study: XY CHEST TWO VIEWS ROUTINE on DOS: 09/19/25, CT CHEST LUNG CANCER SCREEN BASELINE / ANNUAL on DOS: 04/10/25, XY CHEST XRAY 1 VIEW on DOS: 03/30/25, CT CHEST LUNG CANCER SCREEN BASELINE / ANNUAL on DOS: 02/20/25 TECHNIQUE: Multidetector CT of the chest was performed from the lung apices to the upper abdomen without the use of intravenous contract. Axial, coronal and sagittal multiplanar reformats were performed. Radiation Dose Information: CT Dose: CTDI volume is 14.49 mGy. Dose-length product is 529.41 mGy*cm The dose indicators for CT are the volume Computed Tomography (CT) Dose Index (CTDIvol) and the Dose Length Product (DLP), and are measured in units of mGy and mGy-cm, respectively. These indicators are not patient dose, but values generated from the CT scanner acquisition factors. The report includes radiation exposure data for exposures received during this examination. FINDINGS: Lower neck: Unremarkable. Lungs: No focal consolidation. No suspicious pulmonary nodule. Heart/Vascular Structures: Normal heart size. No pericardial effusion. Lymph Nodes: No adenopathy Pleura: No pleural effusion or significant pneumothorax. Musculoskeletal: No acute osseous abnormality. Soft tissues: Normal. Upper abdomen: Limited portions of the upper abdomen are unremarkable. IMPRESSION: No pulmonary nodule to correspond to the abnormality seen on x-ray. Abnormality is likely artifactual and explained by overlapping structures. Radiation optimization: All CT scans at this facility use at least one of these dose optimization techniques: automated exposure control mA and/or kV adjustment per patient size (includes targeted exams where dose is matched to clinical indication) or iterative reconstruction.
--- NOTE | 2025-09-20 15:42 | DVHPNRES ---
Progress Note Date Seen: Sep 20, 2025 Resident Creating Document: MED LOVE RESIDENT Medical Necessity Reason Pt with a Central, PICC or Fol: No Subjective Review of Systems Gera Cain this is a 45-year-old male with past medical history of type 2 diabetes mellitus, 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 He also complains of increased back pain, chest pain and generalized pain in the body. Patient also reports of 2 syncopal episodes. Patient states that the back pain radiates to the bilateral legs. He noticed that his cough was producing yellow sputum but has now turned white. PMHx:type 2 diabetes mellitus, chronic lower back pain secondary to rheumatoid arthritis of the spine, chronic tachycardia PSHx:spinal fusion and laminectomy Family history: Type 2 diabetes mellitus, ESRD, CAD in father Social history: 30 pack year smoking history, denies alcohol or drug use Allergic history: no known allergies Constitutional: No: Fever, Chills, Sweats, Weakness, Malaise, Other Eyes: No: Pain, Vision change, Conjunctivae inflammation, Eyelid inflammation, Other, Redness ENT: No: Ear pain, Ear discharge, Nose pain, Nose discharge, Nose congestion, Mouth pain, Mouth swelling, Throat pain, Throat swelling, Other Respiratory: Cough, Shortness of breath, Sputum; No: Dry, SOB with excertion, Wheezing, Hemoptysis, Pleuritic Pain, Wheezing, Other Cardiovascular: Other (Syncope); No: Chest Pain, Palpitations, Orthopnea, Paroxysmal Noc. Dyspnea, Edema, Lt Headedness Gastrointestinal: No: Nausea, Vomiting, Abdominal Pain, Diarrhea, Constipation, Melena, Hematochezia, Other Genitourinary: No Dysuria, No Frequency, No Incontinence, No Hematuria, No Retention, No Other Musculoskeletal: back pain; No: other, neck pain, shoulder pain, arm pain, hand pain, leg pain, foot pain Skin: No: Rash, Lesions, Jaundice, Bruising, Other Neurological: No: Weakness, Numbness, Incoordination, Change in speech, Confusion, Seizures, Other Objective vital signs Vital Sign Date Time Temp Pulse Resp B/P (MAP) Pulse Ox O2 Delivery O2 Flow Rate FiO2 09/20/25 13:00 97.7 105 18 118/79 (92) 97 97.7 09/19/25 23:00 0.0 09/19/25 22:09 Room Air* 21 Total Intake and Output 09/19/25 09/19/25 09/20/25 15:00 23:00 07:00 Output Total 800 ml Balance -800 ml medications Current Medications Medications Dose Ordered Sig/Jr Route Start Time Stop Time Status Last Admin Dose Admin Acetaminophen/ Hydrocodone Bitart 1 tab Q4HP PRN PO 09/19/25 21:15 09/20/25 07:58 1 TAB Ondansetron HCl 4 mg Q4HP PRN IV 09/19/25 21:15 Acetaminophen 650 mg Q6HP PRN PO 09/19/25 21:15 Enoxaparin Sodium 40 mg DAILY SC 09/19/25 21:15 09/20/25 09:36 40 MG Insulin Glargine 20 units HS SC 09/19/25 22:00 09/19/25 22:00 20 UNITS Prednisone 40 mg DAILY PO 09/20/25 10:00 09/20/25 09:37 40 MG Hydromorphone HCl 0.25 mg Q3HPRN PRN IV 09/19/25 21:15 09/20/25 09:49 0.25 MG Ceftriaxone Sodium 50 ml @ 100 mls/hr Q24H IV 09/20/25 21:00 Diagnostic Test (Pha) 1 strip Q6HR 09/20/25 00:00 09/20/25 13:01 1 STRIP Insulin Human Regular Q6HR SC 09/20/25 00:00 09/20/25 13:01 6 UNITS Dextrose 50 ml UD PRN IV 09/19/25 21:15 Levalbuterol HCl 1.25 mg Q6HR PRN NEB 09/20/25 04:45 Ipratropium [place] 0.5 mg Q6HPRN PRN NEB 09/20/25 08:00 Sodium Chloride 1,000 ml @ 100 mls/hr Q10H IV 09/20/25 07:00 09/20/25 07:59 100 MLS/HR Examination Pt is lying on bed General Appearance: Alert, Oriented X3, Cooperative, in acute distress, flushed face HEENT: Atraumatic, Mucous membranes moist/pink, presence of red macular rash on the chest area (chronic, told by PCP it was due to RA) Respiratory: Clear to auscultation, Normal air movement, No added sounds Cardiovascular: Regular rate, Normal S1, Normal S2, No murmurs Abdominal: Active bowel sounds, Soft, no distention, no tenderness Extremities: No edema, Normal pulses, No tenderness/swelling Skin: No Significant rash, except past surgical scars Neuro: Normal speech, sensorimotor deficits none Psych/Mental Status: Mental status NL, Mood NL laboratory and microbiology Laboratory Tests 09/20/25 04:04 Test 09/20/25 04:04 Range/Units Serum Glucose 244 H 74-106 mg/dL Problem List/Assessment/Plan Problem List/Assessment/Plan Assessment/Plan #Sepsis due to possible Gram-positive, Gram-negative pneumonia #Lactic acidosis -lactic acid 4.1> 2.9>1.7 -blood culture -Respiratory culture -IV Rocephin 1 g daily -COVID, flu- neg -D-dimer 0.57 -Doppler of bilateral extremities: No DVT is seen. No other abnormalities identified -chest x-ray shows nodular density of the 8th rib -Med nebulization albuterol 2.5 mg q.6 PRN -Med nebulization ipratropium bromide q.6 PRN -MRSA neg -IV NS 0.9% #Syncope due to autonomic dysfunction -troponins -39, 37, 30 -UA normal -UDS negative -BNP 8.67 -Echo -TSH 0.64 -Carotid Doppler: No significant stenosis. Any narrowing is less than 50% -Magnesium 2.1 -IV ondansetron for Gram q.4 PRN -Ct head shows: no acute intracranial abnormality seen; Moderate right maxillary sinus mucosal thickening with secretions -levabuterol med neb once #Uncontrolled diabetes mellitus type 2 -A1c 8.2 -serum glucose 243 -insulin Lantus 20 units daily HS -Moderate sliding scale insulin #Rheumatoid arthritis -Continue home medication prednisolone 40 mg daily #Chronic lower back pain due to above -Pain control with: -acetaminophen 650 mg p.o. q.6 PRN for mild pain -[place] 5/325 mg q.4 PRN for moderate pain and -Dilaudid 0.25 mg IV once and 0.25 mg q.4 PRN for severe pain #Obesity, BMI 30.7kg/m2 - patient was counseled regarding need of exercise, weight loss, dietary modification and healthy lifestyle for the 8 minutes #Sinusitis - continue antibiotics #ruled out COVID and influenza #ruled out pulmonary nodule DVT prophylaxis: Lovenox 40 mg SC daily GI prophylaxis: Diet: cardiac and diabetic Goals of care discussed with the patient for more than 27 minutes: Full code status Case discussed with Dr. Davila. Plan discussed with: Patient My Orders My Orders Orders - MED LOVE Procedure Category Date Status Time Sodium Chloride 0.9% PHA 09/20/25 In Process 07:[address] 09/20/25 Resulted 09:38 Date of Service: Sep 20, 2025 Billing Provider: ADELFO DAVILA MD Common Visit Codes: [id number] INP/OBS CARE(HIGH) MED LOVE Sep 20, 2025 15:42 ADELFO DAVILA MD Sep 20, 2025 22:31
[2025-09-21] VITALS (8 sets, daily range): BP systolic 111–123; BP diastolic 73–88; PULSE 83–109; RESP 17–18; TEMP 36.7; O2SAT 93–97
[2025-09-21 07:34] LABS: Alanine Aminotransferase 34 U/L (7-40); Albumin 3.6 g/dL (3.2-4.8); Alkaline Phosphatase 56 U/L (46-116); Anion Gap 11 (5-15); BUN/Creatinine Ratio 19.7 (10.0-20.0); Blood Urea Nitrogen 12 mg/dL (9-23); Carbon Dioxide 23 mmol/L (20-31); Sodium 142 mmol/L (136-145); Total Protein 5.7 g/dL (5.7-8.2)
[2025-09-21 07:35] LABS: Bilirubin, Total 0.5 mg/dL (0.2-1.0)
[2025-09-21 07:37] LABS: Calcium 8.1 mg/dL (8.7-10.4); Chloride 108 mmol/L (98-107); Glucose 122 mg/dL (74-106); Potassium 3.1 mmol/L (3.5-5.1)
[2025-09-21 07:45] LABS: Hematocrit 41.5 % (41.0-53.0); Hemoglobin 13.9 g/dL (13.5-17.5); Mean Corpuscular Hemoglobin 28.0 pg (28.0-32.0); Mean Corpuscular Volume 83.9 fL (80.0-100.0); Nucleated Red Blood Cells % 0.0 %
[2025-09-21] MEDS: POTASSIUM EFFERVESENT TAB 25 MEQ PO ONE (10:51)
[2025-09-21] MEDS ORDERED: HYDROcodone-ACET 5/325MG TAB PO PRN (11:00)
[2025-09-21] MEDS ORDERED: AUG875T PO (13:23)
[2025-09-21] MEDS ORDERED: DOXY-346 PO (13:23)
--- NOTE | 2025-09-21 14:06 | DVHDSRES ---
Discharge Summary Date of Admission Resident Creating Document: MED LOVE RESIDENT Sep 19, 2025 at 21:02 Date of Discharge: Sep 21, 2025 Labs/Diagnostic Data: Laboratory Results Test 09/21/25 12:20 09/21/25 08:05 09/21/25 06:17 09/20/25 04:04 POC Glucose 189 mg/dl (70-106) Lactic Acid Level 1.0 mmol/L (0.4-2.0) White Blood Count 7.7 10^3/uL (4.4-10.8) Red Blood Count 4.95 10^6/uL (4.5-5.90) Hemoglobin 13.9 g/dL (13.5-17.5) Hematocrit 41.5 % (41.0-53.0) Mean Corpuscular Volume 83.9 fL (80.0-100.0) Mean Corpuscular Hemoglobin 28.0 pg (28.0-32.0) Mean Corpuscular Hemoglobin Concent 33.4 g/dL (32.0-36.0) Red Cell Distribution Width 16.7 % (11.8-14.3) Platelet Count 211 10^3/uL (140-450) Mean Platelet Volume 7.5 fL (6.9-10.8) Neutrophils (%) (Auto) 71.0 % (37.0-80.0) Lymphocytes (%) (Auto) 22.2 % (10.0-50.0) Monocytes (%) (Auto) 6.4 % (0.0-12.0) Eosinophils (%) (Auto) 0.1 % (0.0-7.0) Basophils (%) (Auto) 0.3 % (0.0-2.0) Neutrophils # (Auto) 5.5 10 ^3/uL (1.6-8.6) Lymphocytes # (Auto) 1.7 10 ^3/uL (0.4-5.4) Monocytes # (Auto) 0.5 10 ^3/uL (0-1.3) Eosinophils # (Auto) 0 10 ^3/uL (0-0.8) Basophils # (Auto) 0 10 ^3/uL (0-0.2) Nucleated Red Blood Cells 0.0 % Sodium Level 142 mmol/L (136-145) Potassium Level 3.1 mmol/L (3.5-5.1) Chloride Level 108 mmol/L (98-107) Carbon Dioxide Level 23 mmol/L (20-31) Anion Gap 11 (5-15) Blood Urea Nitrogen 12 mg/dL (9-23) Creatinine 0.61 mg/dL (0.700-1.30) Glomerular Filtration Rate Calc 120 mL/min (>90) BUN/Creatinine Ratio 19.7 (10.0-20.0) Serum Glucose 122 mg/dL (74-106) Calcium Level 8.1 mg/dL (8.7-10.4) Total Bilirubin 0.5 mg/dL (0.2-1.0) Aspartate Amino Transferase (AST) 13 U/L (13-40) Alanine Aminotransferase (ALT) 34 U/L (7-40) Alkaline Phosphatase 56 U/L (46-116) Total Protein 5.7 g/dL (5.7-8.2) Albumin 3.6 g/dL (3.2-4.8) Hemoglobin A1c 8.2 % A1C (<5.7) Test 09/20/25 03:40 09/19/25 22:07 09/19/25 19:26 09/19/25 18:31 Influenza Type A Antigen Negative (Negative) Influenza Type B Antigen Negative (Negative) SARS-CoV-2 Antigen (Rapid) Negative (NEGATIVE) D-Dimer, Quantitative 0.57 mg/L FEU (0.0-0.49) Magnesium Level 2.1 mg/dL (1.6-2.6) Troponin I High Sensitivity 30 ng/L (</=54) Urine Color Light-yellow (Yellow) Urine Clarity Clear (Clear) Urine pH 5.5 (5.0-9.0) Urine Specific [place] 1.043 (1.001-1.035) Urine Protein Negative (Negative) Urine Ketones Negative (Negative) Urine Blood Negative /uL (Negative) Urine Nitrite Negative (Negative) Urine Bilirubin Negative (Negative) Urine Urobilinogen Normal mg/dL (Negative) Urine Leukocyte Esterase Negative /uL (Negative) Urine RBC <1 /hpf (0 - 3) Urine Microscopic WBC 1 /HPF (0-3) Urine Squamous Epithelial Cells Few /hpf (<5) Urine Bacteria None seen /hpf (None Seen) Urine Glucose 4+ mg/dL (Normal) Urine Opiates Screen Neg (NEGATIVE) Urine Fentanyl Screen Neg (NEGATIVE) Urine Barbiturates Screen Neg (NEGATIVE) Urine Phencyclidine Screen Neg (NEGATIVE) Urine Amphetamines Screen Neg (NEGATIVE) Urine Benzodiazepines Screen Neg (NEGATIVE) Urine Cocaine Screen Neg (NEGATIVE) Urine Cannabinoids Screen Neg (NEGATIVE) Test 09/19/25 16:38 B-Type Natriuretic Peptide 8.67 pg/mL (0-100) Thyroid Stimulating Hormone (TSH) 0.64 uIU/mL (0.55-4.78) Other Laboratory Tests 09/21/25 06:17 Brief Hx & Hospital Course: Gera Cain this is a 45-year-old male with past medical history of type 2 diabetes mellitus, 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 He also complains of increased back pain, chest pain and generalized pain in the body. Patient also reported of 2 syncopal episodes. Patient stated that the back pain radiates to the bilateral legs. He noticed that his cough was producing yellow sputum but has now turned white. Chest Xray showed nodular density over the right 8th rib. head ct showed moderate right maxillary sinus mucosal thickening with secretions. carotid doppler showed no significant stenosis, usg was negative for DVT. Patient was treated with antibiotics and nebulisations. During the course of the hospitalization, the patient was clinically better and hence being discharged. Condition at Discharge: Fair Final Diagnosis/Problems List #Sepsis due to possible Gram-positive/Gram-negative pneumonia #Lactic acidosis due to above #Syncope due to autonomic dysfunction #Uncontrolled diabetes mellitus type 2 #Rheumatoid arthritis #Obesity, BMI 30.7kg/m2 #Possible Acute Sinusitis #ruled out COVID and influenza #ruled out pulmonary nodule #Hypokalemia Discharge Disposition: Home Discharge Instruct/Medications Diet: Consistent carbohydrate Activity: No Restrictions, As Tolerated Follow Up/Referral: F/u with PCP in 7 days Medications: as per EHR Scheduled Amoxicillin & Pot Clavulanate (Augmentin Tablet), 875 MG PO BID Cholecalciferol (Vitamin D3), 1 TAB PO DAILY, (Reported) Doxycycline (Monohydrate) (Doxycycline), 100 MG PO BID Empagliflozin (Jardiance), 25 MG PO DAILY, (Reported) Gabapentin (Gabapentin), 1 CAP PO BID, (Reported) Hydrocodone-Acetaminophen (Hydrocodone Bitartrate/AC 10-325 mg), 1 TAB PO TID, (Reported) Leflunomide (Arava), 1 TAB PO DAILY, (Reported) Prednisone (Prednisone), 20 MG PO DAILY, (Reported) Miscellaneous Medications Calcium (Calcium), 500 MG PO, (Reported) Insulin Glargine (Lantus), 100 UNIT SC, (Reported) Semaglutide (Ozempic), 2 MG SC, (Reported) Discontinued Medications Metformin Hydrochloride (Metformin Hcl), 1 TAB PO BID, (Reported) Discharge Statement: "Patient was advised to return to the ER or call 911 if any headaches, dizziness, shortness of breath, chest pain, abdominal pain, bleeding, fevers, or worsening of medical condition. Patient was counseled about treatment plan, medications, possible side effects, patientverbalized understanding. All questions were answered to the best of my ability. This discharge took greater then 30 minutes in planning, reviewing documentation, counseling the patient, and discussing with other team members." ASSESSMENT ASSESSMENT Assessment sepsis gram positive/negative pneumonia Date of Service: Sep 21, 2025 Billing Provider: ADELFO DAVILA MD Common Visit Codes: 39555-WDY/OBS DISCH DAY >30min MED LOVE RESIDENT Sep 21, 2025 14:06 ADELFO DAVILA MD Sep 22, 2025 00:08
--- NOTE | 2025-09-22 15:21 | DVHSR ---
APPROVED REPORT EXAM: Two-dimensional and M-mode echocardiogram with Doppler and color Doppler. Blood Pressure: 135/62 mmHg INDICATION Chest Pain RISK FACTORS Height: 70, Weight: 220 DIMENSIONS LVDd (3.8-5.7cm) LA (2D) 4.5 (1.9-4.0cm) Aortic Root 3.8 (2.0-3.7cm) LVDs (2.5-4.0cm) LA (MM) (1.9-4.0cm) Aortic Cusp Exc 2.2 (1.5-2.0cm) EF (%) 70.0 (55-70%) Rt. Atrium (1.9-4.0cm) Asc. Aorta cm Mitral Valve Mitral Mitral Stenosis E wave 0.73m/s MV Mean GR. mmHg A wave 0.88m/s MV Peak GR. mmHg E/A ratio 0.8 2D MVA cm2 DECEL Time 131ms PRESS 1/2 Time 58ms IVRT ms Dop MVA 3.81cm2 Aortic Valve Aortic Valve Aortic Stenosis V1 1.64m/s AO Mean GR. 7mmHg V2 1.70m/s AO Peak GR. 12mmHg LVOT Diameter 2.2 (1.8-2.4cm) Doppler JARETH 3.67cm2 Pulmonic Valve V2 1.49m/s Conclusion LV EF IS 70% NORMAL VALVES NORMAL RV FUNCTION NO EFFUSION
--- NOTE | 2025-09-24 14:12 | ECG ---
[facility] Test Date: 2025-09-19 Test Time: 17:24:44 Pat Name: BENNY SHORT Department: ED Room: 0296T B Gender: M Python Consultant: DR KINGB: 1980 Requested By: ORQUIDEA FORD* Order Number: [id number] Reading MD: Rene Daly Measurements Intervals [place] Rate: 135 P: 30 TX: 125 QRS: -55 QRSD: 86 T: 86 QT: 313 QTc: 470 Interpretive Statements Sinus tachycardia LAE, consider biatrial enlargement Left anterior fascicular block Abnormal R-wave progression, late transition Left ventricular hypertrophy ST elevation suggests acute pericarditis Electronically Signed On 09-25-2025 17:37:30 PST by Rene Daly Please click the below link to view image of tracing.
--- NOTE | 2025-09-24 14:12 | ECG ---
[facility] Test Date: 2025-09-19 Test Time: 16:33:47 Pat Name: BENNY SHORT Department: [facility] ED Patient ID: [id number] Room: 0296T B Gender: M Head Rigger: vika : 1980 Requested By: ORQUIDEA FORD* Order Number: [id number] Reading MD: Rene Daly Measurements Intervals [place] Rate: 137 P: 29 SD: 120 QRS: -53 QRSD: 88 T: 74 QT: 309 QTc: 467 Interpretive Statements Sinus tachycardia LAE, consider biatrial enlargement Left anterior fascicular block Abnormal R-wave progression, late transition LVH with secondary repolarization abnormality ST elevation suggests acute pericarditis Electronically Signed On 09-25-2025 17:37:17 PST by Rene Daly Please click the below link to view image of tracing.
== END 2025-09-21 15:10 | disposition home or self-care (01) | DRG 720 ==
LOC: ER 16:20 → OVERFLOW 21:02 → TELE-WESTW 21:34
PROVIDERS: ADMIT Internal Medicine; ATTEND Internal Medicine
DX: A41.50 Gram-negative sepsis, unspecified (principal); E87.20 Acidosis, unspecified; J15.69 Pneumonia due to other Gram-negative bacteria; J15.9 Unspecified bacterial pneumonia; G90.9 Disorder of the autonomic nervous system, unspecified; E11.9 Type 2 diabetes mellitus without complications; E66.9 Obesity, unspecified; J01.90 Acute sinusitis, unspecified; M06.9 Rheumatoid arthritis, unspecified; I10 Essential (primary) hypertension; Z20.822 Contact with and (suspected) exposure to COVID-19; E78.5 Hyperlipidemia, unspecified; F17.290 Nicotine dependence, other tobacco product, uncomplicated; G89.29 Other chronic pain; E87.6 Hypokalemia; Z98.1 Arthrodesis status; Z68.30 Body mass index [BMI] 30.0-30.9, adult; Z82.49 Family history of ischemic heart disease and other diseases of the circulatory system; Z83.3 Family history of diabetes mellitus; Z84.19 Family history of other disorders of kidney and ureter
CPT/HCPCS: 36415; 70450; 71046; 71250; 80053; 80307; 81001; 82962; 83036; 83605; 83735; 83880; 84443; 84484; 85025; 85379; 87040; 87081; 87426; 87804; 93005; 93306; 93886; 93970; 94640; 96361; 96365; 96375; G0378; J1815